=== PATIENT | female | born 1985 | race Two or more races ===

== ENCOUNTER 2021-11-11 05:52 | Emergency (ER) | payer MEDICAID, OTHER ==
[~2021-11-11] VITALS: Ht 157.5 cm; Wt 63.5 kg
[2021-11-11 06:02] VITALS: BP 112/74
== END 2021-11-11 08:23 | disposition left against medical advice (07) ==
LOC: ER 05:52
DX: R50.9 Fever, unspecified (principal); R05.9 Cough, unspecified; Z53.21 Procedure and treatment not carried out due to patient leaving prior to being seen by health care provider; Z20.822 Contact with and (suspected) exposure to COVID-19
CPT/HCPCS: 36415; 87804

== ENCOUNTER 2023-01-22 06:26 | Emergency (ER) | payer MEDICAID ==
[~2023-01-22] VITALS: Ht 152.4 cm; Wt 64.6 kg
[~2023-01-22 06:26] MED LIST: FERR1TAB17 PO; IBU600T PO; ONDA-144 PO
[2023-01-22 07:43] VITALS: BP 112/70; PULSE 106; RESP 20; TEMP 97.9; O2SAT 99
[2023-01-22] MEDS ORDERED: IBUP-1454 PO (08:07)
[2023-01-22] MEDS ORDERED: CEPH500C PO (08:07)
== END 2023-01-22 08:09 | disposition home or self-care (01) ==
LOC: ER 06:26
DX: S20.469A Insect bite (nonvenomous) of unspecified back wall of thorax, initial encounter (principal); Z90.49 Acquired absence of other specified parts of digestive tract; Z79.1 Long term (current) use of non-steroidal anti-inflammatories (NSAID); Z79.899 Other long term (current) drug therapy; W57.XXXA Bitten or stung by nonvenomous insect and other nonvenomous arthropods, initial encounter; Y93.89 Activity, other specified; Y92.89 Other specified places as the place of occurrence of the external cause; Y99.8 Other external cause status